=== PATIENT | female | born 2000 | race Caucasian/White ===

== ENCOUNTER 2020-07-03 11:32 | Emergency (ER) | payer OTHER, SELFPAY | END 2020-07-03 11:45 | disposition home or self-care (01) | LOC: BURERS 11:32 → EDBD 11:32 → BURERS 11:45 | DX: S11.95XA Open bite of unspecified part of neck, initial encounter (principal); F17.290 Nicotine dependence, other tobacco product, uncomplicated; W54.0XXA Bitten by dog, initial encounter | CPT/HCPCS: 99283 ==